=== PATIENT | male | born 1965 | race African-American/Black ===

== ENCOUNTER 2024-12-02 15:44 | Emergency (ER) | payer SELFPAY ==
[2024-12-02] MEDS ORDERED: Ketorolac Tromethamine 30 MG (1 mL) VIAL ONE (16:11)
[2024-12-02] MEDS ORDERED: Ondansetron PF 4 MG/2 ML Vial ONE (16:11)
[2024-12-02 16:14] LABS: Bacteria/HPF None Seen HPF (None Seen); Bilirubin Negative (Negative); Blood, Urine Negative (Negative); CAUTI Indications for Culture Alt mental st,lethar; Clarity Clear (Clear); Glucose, Urine (Dipstick) Normal (Negative); Ketone, Urine Trace mg/dL (Negative); Leukocyte Negative Leu/uL (Negative); Nitrite Negative (Negative); Protein, Urine (Dipstick) 50 mg/dL (Neg-Trace); RBC/HPF 0-3 HPF (0-3); Specific Gravity, Urine 1.039 (1.002-1.036); Squamous Epithelial None Seen HPF (0-3); WBC/HPF 0-3 HPF (0-3)
[2024-12-02 16:18] LABS: Sperm/HPF Rare HPF (None Seen)
[2024-12-02 16:19] LABS: Urine Culture Reflex No No
[2024-12-02 16:26] LABS: #Basophils 0.06 10x3/uL (0.0-0.2); %Basophils 0.5 % (0.0-1.0); %Eosinophils 2.3 % (0.0-10.0); %Lymphocytes 17.5 % (21.0-51.0); %Neutrophils 73.4 % (42.0-75.0); Hemoglobin 11.6 g/dL (14.0-18.0); Mean Corpuscular HGB CONC 32.2 g/dL (32.0-36.0); Mean Corpuscular Hemoglobin 28.2 pg (27.0-31.0); Mean Corpuscular Volume 87.6 fL (78.0-98.0); Mean Platelet Volume 9.6 fL (7.4-10.4); Platelet Count 360 10x3/uL (130-400); RBC Distribution Width 14.3 % (11.5-14.5); Red Blood Cell (RBC) Count 4.11 mill/uL (4.70-6.10)
[2024-12-02 16:49] LABS: ALT (SGPT) 17 U/L (Less than 45); AST (SGOT) 24 U/L (11-34); Albumin 3.3 g/dL (3.1-4.5); Alkaline Phosphatase 100 U/L (40-110); Anion Gap 11 mmol/L (10-20); BUN (Urea Nitrogen) 12 mg/dL (8.4-25.7); Bilirubin, Total 0.2 mg/dL (0.3-1.2); Calc. Creatinine Clearance 0 mL/min (70-130); Calcium 8.7 mg/dL (7.8-10.44); Carbon Dioxide 24 mmol/L (22-29); Chloride 109 mmol/L (98-107); Estimated GFR 84; Globulin 3.3 g/dL (2.4-3.5); Glucose 95 mg/dL (70-105); Lipase 24 U/L (8-78); Potassium 4.1 mmol/L (3.5-5.1); Protein, Total 6.6 g/dL (6.0-8.3); Sodium 140 mmol/L (136-145)
== END 2024-12-02 18:25 | disposition home or self-care (01) ==
LOC: ERS 15:44
DX: K66.8 Other specified disorders of peritoneum (principal); R10.31 Right lower quadrant pain; F17.290 Nicotine dependence, other tobacco product, uncomplicated
CPT/HCPCS: 36415; 74177; 80053; 81001; 83690; 85025; 96374; 96375; J1885; J2405

== ENCOUNTER 2025-05-23 12:21 | Outpatient (CLI) | payer OTHER ==
[~2025-05-23 12:21] MED LIST: Iopamidol 370 76% 100 ML VIAL ONE
== END 2025-05-23 12:22 | disposition home or self-care (01) ==
LOC: CT 12:21
PROVIDERS: ATTEND Internal Medicine Hematology & Oncology
DX: C18.2 Malignant neoplasm of ascending colon (principal); C20 Malignant neoplasm of rectum; C78.7 Secondary malignant neoplasm of liver and intrahepatic bile duct; R16.0 Hepatomegaly, not elsewhere classified; M79.89 Other specified soft tissue disorders
CPT/HCPCS: 71260; 74177; Q9967

== ENCOUNTER 2025-07-31 08:44 | Inpatient (IN) | payer OTHER ==
[2025-07-31 10:57] LABS: #Basophils 0.03 10x3/uL (0.0-0.2); #Eosinophils 0.04 10x3/uL (0.0-0.7); #Monocytes 0.45 10x3/uL (0.11-0.59); #Neutrophils 3.03 10x3/uL (1.40-6.50); %Basophils 0.6 % (0.0-1.0); %Eosinophils 0.8 % (0.0-10.0); %Lymphocytes 30.2 % (21.0-51.0); %Monocytes 8.7 % (0.0-10.0); %Neutrophils 58.7 % (42.0-75.0); Hematocrit 32.3 % (42.0-52.0); Hemoglobin 10.0 g/dL (14.0-18.0); Mean Corpuscular Hemoglobin 27.8 pg (27.0-31.0); Mean Corpuscular Volume 89.7 fL (78.0-98.0); Platelet Count 461 10x3/uL (130-400); Red Blood Cell (RBC) Count 3.60 mill/uL (4.70-6.10); White Blood Cell (WBC) Count 5.16 10x3/uL (4.8-10.8)
[2025-07-31 11:14] LABS: ALT (SGPT) 8 U/L (Less than 45); AST (SGOT) 23 U/L (11-34); Albumin 2.5 g/dL (3.1-4.5); Alkaline Phosphatase 375 U/L (40-110); Anion Gap 18 mmol/L (10-20); BUN (Urea Nitrogen) 32 mg/dL (8.4-25.7); Bilirubin, Total 0.3 mg/dL (0.3-1.2); CRP, High Sensitivity at Bryan 10.80 mg/dL (< or = 0.5); Calc. Creatinine Clearance 0 mL/min (70-130); Calcium 9.1 mg/dL (7.8-10.44); Carbon Dioxide 16 mmol/L (22-29); Chloride 105 mmol/L (98-107); Globulin 4.7 g/dL (2.4-3.5); Glucose 101 mg/dL (70-105); Lipase 22 U/L (8-78); Magnesium 2.3 mg/dL (1.6-2.6); Potassium 5.6 mmol/L (3.5-5.1); Sodium 133 mmol/L (136-145)
[2025-07-31] MEDS ORDERED: Iopamidol-370 76% 500 ML MDV (1 ML CHARGE) ONE (12:35)
[2025-07-31] MEDS ORDERED: Calcium Carbonate 500 MG ChewTAB PO PRN (14:11)
[2025-07-31] MEDS ORDERED: Acetaminophen 325 MG TAB PO PRN (14:11)
[2025-07-31] MEDS ORDERED: Senokot S 8.6-50 MG TAB PO PRN (14:11)
[2025-07-31] MEDS ORDERED: Melatonin 3 MG TAB PO PRN (14:11)
[2025-07-31] MEDS ORDERED: Ondansetron PF 4 MG/2 ML Vial IVP PRN (14:11)
[2025-07-31] MEDS ORDERED: Electrolyte Replacement Protocol 1 EACH FS SCH (14:15)
[2025-07-31] MEDS ORDERED: HYDROmorphone 0.5 MG/0.5 ML SYRINGE ONE (14:29)
[2025-07-31] MEDS ORDERED: PHOS-NAK 1 PKT PACK PO PRN (15:15)
[2025-07-31] MEDS ORDERED: Potassium Chloride 20 MEQ in Premix 1 BAG IVPB PRN (15:15)
[2025-07-31] MEDS ORDERED: Magnesium Sulfate In Water 4 GM in Premix 1 BAG IVPB PRN (15:15)
[2025-07-31 18:35] VITALS: BMI 16.3
[2025-07-31] MEDS: HYDROcodone/Acetaminophen 10/325 mg Tablet PO PRN (19:25)
[2025-07-31] MEDS: Mirtazapine 15 MG TAB PO SCH (20:21)
[2025-08-01 05:10] LABS: #Basophils Less than 0.03 10x3/uL (0.0-0.2); #Eosinophils 0.20 10x3/uL (0.0-0.7); #Monocytes 0.54 10x3/uL (0.11-0.59); #Neutrophils 4.14 10x3/uL (1.40-6.50); %Basophils 0.3 % (0.0-1.0); %Eosinophils 3.0 % (0.0-10.0); %Lymphocytes 25.0 % (21.0-51.0); %Monocytes 8.2 % (0.0-10.0); %Neutrophils 62.6 % (42.0-75.0); Hematocrit 29.4 % (42.0-52.0); Hemoglobin 9.4 g/dL (14.0-18.0); Mean Corpuscular Hemoglobin 28.6 pg (27.0-31.0); Mean Corpuscular Volume 89.4 fL (78.0-98.0); Platelet Count 400 10x3/uL (130-400); Red Blood Cell (RBC) Count 3.29 mill/uL (4.70-6.10); White Blood Cell (WBC) Count 6.61 10x3/uL (4.8-10.8)
[2025-08-01 05:26] LABS: ALT (SGPT) 8 U/L (Less than 45); AST (SGOT) 35 U/L (11-34); Albumin 2.1 g/dL (3.1-4.5); Alkaline Phosphatase 278 U/L (40-110); Anion Gap 17 mmol/L (10-20); BUN (Urea Nitrogen) 24 mg/dL (8.4-25.7); Bilirubin, Total 0.2 mg/dL (0.3-1.2); Calc. Creatinine Clearance 71 mL/min (70-130); Calcium 8.8 mg/dL (7.8-10.44); Carbon Dioxide 12 mmol/L (22-29); Chloride 106 mmol/L (98-107); Globulin 4.6 g/dL (2.4-3.5); Glucose 88 mg/dL (70-105); Magnesium 2.0 mg/dL (1.6-2.6); Potassium 4.7 mmol/L (3.5-5.1); Sodium 130 mmol/L (136-145)
[2025-08-01] MEDS: Mupirocin 1 GM TUBE TP SCH (08:36)
[2025-08-01] MEDS: Enoxaparin 40 MG (0.4 mL) SYRINGE SC SCH (08:38)
[2025-08-01] MEDS: Gabapentin 300 MG CAP PO SCH (13:41)
[2025-08-01 14:02] VITALS: BMI 16.3
[2025-08-01] MEDS: Megestrol Acetate 800 MG/20 ML UDCUP PO SCH (15:17)
[2025-08-02 05:21] LABS: #Basophils Less than 0.03 10x3/uL (0.0-0.2); #Eosinophils 0.12 10x3/uL (0.0-0.7); #Monocytes 0.90 10x3/uL (0.11-0.59); #Neutrophils 4.67 10x3/uL (1.40-6.50); %Basophils 0.3 % (0.0-1.0); %Eosinophils 1.6 % (0.0-10.0); %Lymphocytes 24.8 % (21.0-51.0); %Monocytes 11.7 % (0.0-10.0); %Neutrophils 60.6 % (42.0-75.0); Hematocrit 26.9 % (42.0-52.0); Hemoglobin 8.2 g/dL (14.0-18.0); Mean Corpuscular Hemoglobin 28.0 pg (27.0-31.0); Mean Corpuscular Volume 91.8 fL (78.0-98.0); Platelet Count 361 10x3/uL (130-400); Red Blood Cell (RBC) Count 2.93 mill/uL (4.70-6.10); White Blood Cell (WBC) Count 7.70 10x3/uL (4.8-10.8)
[2025-08-02 05:42] LABS: Anion Gap 16 mmol/L (10-20); BUN (Urea Nitrogen) 16 mg/dL (8.4-25.7); Calc. Creatinine Clearance 70 mL/min (70-130); Calcium 9.1 mg/dL (7.8-10.44); Carbon Dioxide 15 mmol/L (22-29); Chloride 107 mmol/L (98-107); Glucose 109 mg/dL (70-105); Potassium 4.8 mmol/L (3.5-5.1); Sodium 133 mmol/L (136-145)
[2025-08-02] MEDS: Enoxaparin 30 MG (0.3 mL) SYRINGE SC SCH (09:34)
[2025-08-02] MEDS: Megestrol Acetate 800 MG/20 ML UDCUP PO SCH (09:35)
[2025-08-02] MEDS: PNEUMOC 20-VAL CONJ-DIP CRM/PF 0.5 ML SYRINGE IM ONE (10:08)
[2025-08-02] MEDS: Gabapentin 300 MG CAP PO SCH (15:23)
[2025-08-02] MEDS: FLU (Fluarix Triv) 25-26 (6MOS UP)/PF 45 MCG/0.5 ML Syringe IM ONE (17:06)
[2025-08-03 04:49] LABS: #Basophils 0.03 10x3/uL (0.0-0.2); #Eosinophils 0.06 10x3/uL (0.0-0.7); #Monocytes 1.26 10x3/uL (0.11-0.59); #Neutrophils 7.04 10x3/uL (1.40-6.50); %Basophils 0.3 % (0.0-1.0); %Eosinophils 0.6 % (0.0-10.0); %Lymphocytes 15.6 % (21.0-51.0); %Monocytes 12.5 % (0.0-10.0); %Neutrophils 70.0 % (42.0-75.0); Hematocrit 24.2 % (42.0-52.0); Hemoglobin 7.4 g/dL (14.0-18.0); Mean Corpuscular Hemoglobin 28.2 pg (27.0-31.0); Mean Corpuscular Volume 92.4 fL (78.0-98.0); Platelet Count 357 10x3/uL (130-400); Red Blood Cell (RBC) Count 2.62 mill/uL (4.70-6.10); White Blood Cell (WBC) Count 10.06 10x3/uL (4.8-10.8)
[2025-08-03 05:01] LABS: Anion Gap 13 mmol/L (10-20); BUN (Urea Nitrogen) 16 mg/dL (8.4-25.7); Calc. Creatinine Clearance 75 mL/min (70-130); Calcium 9.0 mg/dL (7.8-10.44); Carbon Dioxide 15 mmol/L (22-29); Chloride 114 mmol/L (98-107); Glucose 108 mg/dL (70-105); Potassium 5.0 mmol/L (3.5-5.1); Sodium 137 mmol/L (136-145)
[2025-08-03] MEDS: Sodium Bicarbonate Tab 325 MG TAB PO SCH (09:38)
[2025-08-03 14:57] VITALS: BP 104/73; TEMP 98.1
== END 2025-08-03 14:57 | disposition home or self-care (01) | DRG 947 ==
LOC: ERS 08:44 → SUATTDRO 08:44 → ERHOLD 14:06 → MSONC 18:29 → OBSVTOIN 08-01 11:19
PROVIDERS: ADMIT Internal Medicine; ATTEND Family Medicine
DX: G89.3 Neoplasm related pain (acute) (chronic) (principal); E43 Unspecified severe protein-calorie malnutrition; C18.9 Malignant neoplasm of colon, unspecified; E87.1 Hypo-osmolality and hyponatremia; N17.9 Acute kidney failure, unspecified; C78.7 Secondary malignant neoplasm of liver and intrahepatic bile duct; Z68.1 Body mass index [BMI] 19.9 or less, adult; E87.20 Acidosis, unspecified; R62.7 Adult failure to thrive; E86.0 Dehydration; E87.6 Hypokalemia; F17.210 Nicotine dependence, cigarettes, uncomplicated; Z85.038 Personal history of other malignant neoplasm of large intestine; Z85.028 Personal history of other malignant neoplasm of stomach; Z98.890 Other specified postprocedural states; Z79.899 Other long term (current) drug therapy; Z23 Encounter for immunization
CPT/HCPCS: 36415; 70450; 71046; 71275; 74177; 80048; 80053; 83605; 83690; 83735; 84100; 84484; 85025; 86141; 87040; 87428; 93005; 96372; 96374; 96375; 96376; 97139; G0378; J1171; J1642; J1650; J2270; J3010; J7030; Q9967